=== PATIENT | female | born 1935 | race Caucasian/White ===

== ENCOUNTER 2021-12-09 13:22 | Inpatient (IN) ==
[2021-12-09 14:12] LABS: Basophils % 0.4 %; Eosinophils # 0.2 K/mcL (0.0-0.6); Eosinophils % 1.7 %; Hemoglobin 9.2 g/dL (11.5-15.4); Immature Granulocytes % 0.3 % (0-4); Lymphocytes # 1.4 K/mcL (0.6-4.6); Lymphocytes % 14.9 %; Mean Corpuscular HGB Conc 31.7 g/dL (31.6-35.5); Mean Corpuscular Hemoglobin 27.6 pg (28.0-33.3); Mean Corpuscular Volume 87.1 fL (83.0-100.0); Monocytes # 0.6 K/mcL (0.0-1.3); Monocytes % 6.5 %; Neutrophils # 7.1 K/mcL (1.6-8.9); Platelet Count 181 K/mcL (140-400); Red Blood Count 3.33 M/mcL (3.82-4.97); Red Cell Distribution Width 12.6 % (11.5-14.5); Segmented Neutrophils % 76.2 %; White Blood Count 9.4 K/mcL (4.3-11.1)
[2021-12-09 14:53] LABS: BUN/Creatinine Ratio 30 (6-26); Blood Urea Nitrogen 60 mg/dL (8-23); Calcium 8.8 mg/dL (8.6-10.3); Carbon Dioxide 21 mEq/L (23-29); Chloride 106 mEq/L (98-107); Glucose 208 mg/dL (70-105); Osmolality,Calculated 305 (280-300); Potassium 5.1 mEq/L (3.5-5.1); Sodium 136 mEq/L (136-145); Troponin I < 0.03 ng/mL (< 0.04); eGFR For African Americans 29 (> 60); eGFR For Non-African Americans 24 (> 60)
[2021-12-09 17:05] LABS: Alanine Aminotransferase 15 Units/L (7-52); Albumin 4.2 g/dL (3.5-5.7); Albumin/Globulin Ratio 1.7 (1.1-2.2); Alkaline Phosphatase 66 Units/L (34-104); Aspartate Amino Transferase 15 Units/L (13-39); Bilirubin,Direct 0.1 mg/dL (0.0-0.2); Bilirubin,Indirect 0.3 mg/dL (0.0-1.0); Bilirubin,Total 0.4 mg/dL (0.3-1.0); Globulin 2.5 g/dL (2.4-3.5); Total Protein 6.7 g/dL (6.4-8.9)
[2021-12-09 17:43] LABS: VBG HCO3 22 mEq/L (21-27); VBG PCO2 48 mmHg (41-51); VBG PH 7.28 pH Units (7.32-7.42); VBG PO2 50 mmHg (25-50)
[2021-12-09] MEDS ORDERED: Ipratropium/Albuterol Neb 3 ML IH ONE (17:46)
[2021-12-09] MEDS ORDERED: 0.9 % Sodium Chloride 500 ML IV ONE (17:49)
[2021-12-09 18:25] LABS: Bacteria,Urine Few per hpf (None-Few); Bilirubin,Urine Negative (Negative); Blood,Urine Negative (Negative); Clarity,Urine Clear (Clear); Color,Urine Colorless (Yellow); Glucose,Urine (UA) Normal (Normal); Ketones,Urine Negative (Negative); Leukocyte Esterase,Urine Moderate (Negative); Mucus,Urine Few per lpf (None-Few); Nitrite,Urine Negative (Negative); PH,Urine 5.5 pH Units (5.0-8.0); Protein,Urine Negative (Neg-Trace); RBC,Urine 0-3 per hpf (0-3); Specific Gravity,Urine 1.009 (1.010-1.025); Squamous Epithelial Cell,Urine Few per hpf (None-Few); Urobilinogen,Urine Normal (Normal)
[2021-12-09 20:31] LABS: Adenovirus Not Detected (Not Detect); Bordetella Pertussis Not Detected (Not Detect); Chlamydophila pneumoniae Not Detected (Not Detect); Coronavirus 229E Not Detected (Not Detect); Coronavirus HKU1 Not Detected (Not Detect); Coronavirus NL63 Not Detected (Not Detect); Coronavirus OC43 Not Detected (Not Detect); Human Metapneumovirus Not Detected (Not Detect); Human Rhinovirus/Enterovirus Not Detected (Not Detect); Influenza A Subtype 2009 H1 Not Detected (Not Detect); Influenza B Not Detected (Not Detect); Parainfluenza Virus 1 Not Detected (Not Detect); Parainfluenza Virus 2 Not Detected (Not Detect); Parainfluenza Virus 3 Not Detected (Not Detect); Parainfluenza Virus 4 Not Detected (Not Detect); Respiratory Syncytial Virus Not Detected (Not Detect); SARS-CoV-2 Not Detected (Not Detect)
[2021-12-09 20:32] LABS: Mycoplasma pneumoniae Not Detected (Not Detect)
[2021-12-09 20:41] LABS: VBG HCO3 21 mEq/L (21-27); VBG PCO2 47 mmHg (41-51); VBG PH 7.25 pH Units (7.32-7.42); VBG PO2 44 mmHg (25-50)
[2021-12-09] MEDS ORDERED: Melatonin 3 MG TABLET PO PRN (22:09)
[2021-12-09] MEDS ORDERED: Naloxone 0.4 MG/ML INJ IVP PRN (22:09)
[2021-12-09] MEDS ORDERED: Ondansetron ODT 4 MG TAB.RAPDIS SL PRN (22:09)
[2021-12-09] MEDS ORDERED: Acetaminophen 325 MG TABLET PO PRN (22:09)
[2021-12-09] MEDS ORDERED: Perflutren Lipid Microsphere 1.3 ML in 0.9 % Sodium Chloride 8.7 ML IVP PRN (22:12)
[2021-12-09] MEDS ORDERED: Dextrose Gel 15 GM/37.5 ML TUBE PO PRN ×2 (22:57)
[2021-12-09] MEDS ORDERED: D5% in Water 1,000 ML IVC PRN (22:57)
[2021-12-09] MEDS ORDERED: *HR* Dextrose 50 % in Water (Syg) 50 ML SYRINGE IVP PRN (22:57)
[2021-12-09] MEDS ORDERED: Ipratropium/Albuterol Neb 3 ML IH PRN (23:11)
[2021-12-09] MEDS ORDERED: Nitroglycerin 0.4 MG TAB.SUBL SL PRN (23:16)
[2021-12-10] MEDS: Insulin LISPRO 300 UNITS/3 ML VIAL SUBQ SCH ×4 (00:07→18:44)
[2021-12-10 06:06] LABS: Hematocrit 25.8 % (35.3-44.9); Hemoglobin 8.2 g/dL (11.5-15.4); Mean Corpuscular HGB Conc 31.8 g/dL (31.6-35.5); Mean Corpuscular Hemoglobin 27.3 pg (28.0-33.3); Mean Platelet Volume 10.6 fL (9.4-12.4); Platelet Count 135 K/mcL (140-400); Red Cell Distribution Width 12.5 % (11.5-14.5); White Blood Count 6.8 K/mcL (4.3-11.1)
[2021-12-10 06:25] LABS: Calcium 8.6 mg/dL (8.6-10.3); Chol/HDL Ratio 4.4 (0-4.9); Magnesium 2.1 mg/dL (1.6-2.6); Phosphorous 4.2 mg/dL (2.7-4.5); Potassium 5.1 mEq/L (3.5-5.1)
[2021-12-10 06:31] LABS: Thyroid Stimulating Hormone 3.124 mcIU/mL (0.340-5.600)
[2021-12-10 11:02] LABS: Estimated Average Glucose 154 mg/dl
[2021-12-10] MEDS ORDERED: Furosemide 20 MG/2 ML VIAL IVP ONE (12:17)
[2021-12-10] MEDS: Albumin 25% 25gram/100mL 25 GM/100 ML IV.SOLN IVPB SCH ×3 (13:34→23:41)
[2021-12-10] MEDS: Isosorbide MONOnitrate (24 HR) 60 MG TAB.ER.24H PO SCH (13:34)
[2021-12-10] MEDS: *HR* Heparin 5,000 UNIT/ML VIAL SQ SCH (18:37)
[2021-12-10] MEDS ORDERED: Sucralfate 1 GM TABLET PO SCH (21:00)
[2021-12-10] MEDS ORDERED: Insulin DETEMIR 100 UNIT/ML X5UNITS SUBQ SCH (21:00)
[2021-12-10] MEDS ORDERED: Mirtazapine 15 MG TABLET PO SCH (21:00)
[2021-12-11 00:39] LABS: Basophils % 0.4 %; Eosinophils # 0.1 K/mcL (0.0-0.6); Eosinophils % 1.9 %; Hematocrit 23.1 % (35.3-44.9); Hemoglobin 7.3 g/dL (11.5-15.4); Immature Granulocytes % 0.5 % (0-4); Lymphocytes % 18.2 %; Mean Corpuscular HGB Conc 31.6 g/dL (31.6-35.5); Mean Corpuscular Hemoglobin 27.3 pg (28.0-33.3); Mean Corpuscular Volume 86.5 fL (83.0-100.0); Mean Platelet Volume 10.6 fL (9.4-12.4); Monocytes # 0.5 K/mcL (0.0-1.3); Monocytes % 8.1 %; Neutrophils # 4.1 K/mcL (1.6-8.9); Platelet Count 133 K/mcL (140-400); Red Blood Count 2.67 M/mcL (3.82-4.97); Red Cell Distribution Width 12.5 % (11.5-14.5); Segmented Neutrophils % 70.9 %; White Blood Count 5.7 K/mcL (4.3-11.1)
[2021-12-11 01:02] LABS: Calcium 8.9 mg/dL (8.6-10.3); Phosphorous 3.3 mg/dL (2.7-4.5); Potassium 4.2 mEq/L (3.5-5.1)
[2021-12-11 02:31] VITALS: O2SAT 97
[2021-12-11 04:06] LABS: Estimated Average Glucose 154 mg/dl
[2021-12-11] MEDS: Insulin LISPRO 300 UNITS/3 ML VIAL SUBQ SCH ×3 (06:44→11:47)
[2021-12-11] MEDS: *HR* Heparin 5,000 UNIT/ML VIAL SQ SCH (06:44)
[2021-12-11] MEDS: Isosorbide MONOnitrate (24 HR) 60 MG TAB.ER.24H PO SCH (08:19)
[2021-12-11] MEDS ORDERED: lisinopriL 20 MG TABLET PO SCH (09:00)
[2021-12-11] MEDS ORDERED: Metoprolol XL (24 HR) Succ 50 MG TAB.ER.24H PO SCH (09:00)
[2021-12-11] MEDS ORDERED: ARIPiprazole 5 MG TABLET PO SCH (09:00)
[2021-12-11] MEDS ORDERED: Cyanocobalamin (B-12) 1,000 MCG TABLET PO SCH (09:00)
[2021-12-11 09:05] LABS: Hematocrit 25.5 % (35.3-44.9); Hemoglobin 8.2 g/dL (11.5-15.4)
[2021-12-11 09:34] LABS: % Iron Saturation 16 % (15-50); Iron 38 mcg/dL (50-170); Transferrin 168 mg/dL (203-362)
[2021-12-11 09:52] LABS: Ferritin 257 ng/mL (10-120)
[2021-12-11 10:52] VITALS: BP 118/59; PULSE 59; TEMP 98.1
[2021-12-11 10:58] LABS: Folate > 22.3 ng/mL (3.0-16.0); Vitamin B12 978 pg/mL (250-1100)
== END 2021-12-11 14:24 | disposition home health service (06) | DRG 291 ==
LOC: EMEROOARM 13:22 → 3BNU 13:22 → SUATTDRO 22:15 → 3BNU 23:00
PROVIDERS: ADMIT Student in an Organized Health Care Education/Training Program; ATTEND Internal Medicine

== ENCOUNTER 2022-01-23 16:32 | Inpatient (IN) ==
[2022-01-23] MEDS ORDERED: Iopamidol - 370 500 ML MLS IVP ONE (20:16)
[2022-01-23 21:04] LABS: Basophils % 0.4 %; Eosinophils # 0.1 K/mcL (0.0-0.6); Eosinophils % 1.6 %; Hemoglobin 9.2 g/dL (11.5-15.4); Immature Granulocytes % 0.5 % (0-4); Lymphocytes # 1.6 K/mcL (0.6-4.6); Lymphocytes % 22.1 %; Mean Corpuscular HGB Conc 31.7 g/dL (31.6-35.5); Mean Corpuscular Hemoglobin 27.3 pg (28.0-33.3); Mean Corpuscular Volume 86.1 fL (83.0-100.0); Mean Platelet Volume 10.8 fL (9.4-12.4); Monocytes # 0.6 K/mcL (0.0-1.3); Monocytes % 7.7 %; Platelet Count 192 K/mcL (140-400); Red Blood Count 3.37 M/mcL (3.82-4.97); Red Cell Distribution Width 12.6 % (11.5-14.5); Segmented Neutrophils % 67.7 %; White Blood Count 7.4 K/mcL (4.3-11.1)
[2022-01-23 21:13] LABS: BUN/Creatinine Ratio 32 (6-26); Blood Urea Nitrogen 58 mg/dL (8-23); Calcium 8.8 mg/dL (8.6-10.3); Carbon Dioxide 23 mEq/L (23-29); Chloride 105 mEq/L (98-107); Glucose 207 mg/dL (70-105); Osmolality,Calculated 306 (280-300); Sodium 137 mEq/L (136-145); Troponin I < 0.03 ng/mL (< 0.04)
[2022-01-23] MEDS ORDERED: Aspirin 81 MG TAB.CHEW PO ONE (23:10)
[2022-01-23] MEDS ORDERED: *HR* HYDROcodone/Acet 5/325 mg TABLET PO PRN (23:45)
[2022-01-23] MEDS ORDERED: Acetaminophen 325 MG TABLET PO PRN (23:45)
[2022-01-23] MEDS ORDERED: Naloxone 0.4 MG/ML INJ IVP PRN (23:45)
[2022-01-24] MEDS ORDERED: *HR* Dextrose 50 % in Water (Syg) 50 ML SYRINGE IVP PRN (04:55)
[2022-01-24] MEDS ORDERED: Dextrose Gel 15 GM/37.5 ML TUBE PO PRN ×2 (04:55)
[2022-01-24] MEDS ORDERED: D5% in Water 1,000 ML IVC PRN (04:55)
[2022-01-24] MEDS ORDERED: *HR* Enoxaparin 40 MG/0.4 ML SYRINGE SQ SCH (06:00)
[2022-01-24 06:38] LABS: Hematocrit 31.1 % (35.3-44.9); Hemoglobin 9.7 g/dL (11.5-15.4); Mean Corpuscular HGB Conc 31.2 g/dL (31.6-35.5); Mean Corpuscular Hemoglobin 27.2 pg (28.0-33.3); Mean Corpuscular Volume 87.4 fL (83.0-100.0); Mean Platelet Volume 10.3 fL (9.4-12.4); Platelet Count 181 K/mcL (140-400); Red Blood Count 3.56 M/mcL (3.82-4.97); Red Cell Distribution Width 12.7 % (11.5-14.5); White Blood Count 6.1 K/mcL (4.3-11.1)
[2022-01-24 06:44] LABS: INR 1.1; Prothrombin Time 11.8 Seconds (9.4-12.1)
[2022-01-24 06:47] LABS: Activated Partial Thrombo Time 29.3 Seconds (26.0-36.0)
[2022-01-24 07:01] LABS: Albumin 4.4 g/dL (3.5-5.7); Albumin/Globulin Ratio 1.8 (1.1-2.2); Bilirubin,Total 0.5 mg/dL (0.3-1.0); Calcium 8.8 mg/dL (8.6-10.3); Chol/HDL Ratio 4.7 (0-4.9); Globulin 2.5 g/dL (2.4-3.5); Magnesium 2.1 mg/dL (1.6-2.6); Phosphorous 4.2 mg/dL (2.7-4.5); Potassium 4.3 mEq/L (3.5-5.1); Total Protein 6.9 g/dL (6.4-8.9)
[2022-01-24 07:59] LABS: Estimated Average Glucose 157 mg/dl; Hemoglobin A1C 7.1 %
[2022-01-24] MEDS: Insulin LISPRO 300 UNITS/3 ML VIAL SUBQ SCH ×4 (08:49→22:20)
[2022-01-24] MEDS: Metoprolol XL (24 HR) Succ 25 MG TAB.ER.24H PO SCH (12:39)
[2022-01-24] MEDS: lisinopriL 20 MG TABLET PO SCH (12:39)
[2022-01-24] MEDS: Melatonin 3 MG TABLET PO PRN (22:20)
[2022-01-25 01:55] LABS: Basophils % 0.4 %; Eosinophils # 0.2 K/mcL (0.0-0.6); Eosinophils % 2.9 %; Hematocrit 29.5 % (35.3-44.9); Hemoglobin 9.2 g/dL (11.5-15.4); Immature Granulocytes % 0.6 % (0-4); Lymphocytes # 1.2 K/mcL (0.6-4.6); Lymphocytes % 22.8 %; Mean Corpuscular HGB Conc 31.2 g/dL (31.6-35.5); Mean Corpuscular Hemoglobin 27.9 pg (28.0-33.3); Mean Corpuscular Volume 89.4 fL (83.0-100.0); Mean Platelet Volume 10.8 fL (9.4-12.4); Monocytes # 0.4 K/mcL (0.0-1.3); Monocytes % 8.1 %; Neutrophils # 3.4 K/mcL (1.6-8.9); Platelet Count 146 K/mcL (140-400); Red Cell Distribution Width 12.7 % (11.5-14.5); Segmented Neutrophils % 65.2 %; White Blood Count 5.2 K/mcL (4.3-11.1)
[2022-01-25 03:06] LABS: Calcium 8.5 mg/dL (8.6-10.3); Potassium 4.5 mEq/L (3.5-5.1)
[2022-01-25] MEDS: *HR* Enoxaparin 30 MG/0.3 ML SYRINGE SQ SCH (08:34)
[2022-01-25] MEDS: lisinopriL 20 MG TABLET PO SCH (08:35)
[2022-01-25] MEDS: Insulin LISPRO 300 UNITS/3 ML VIAL SUBQ SCH ×4 (08:35→21:16)
[2022-01-25] MEDS: Metoprolol XL (24 HR) Succ 25 MG TAB.ER.24H PO SCH (08:35)
[2022-01-25] MEDS: Isosorbide MONOnitrate (24 HR) 60 MG TAB.ER.24H PO SCH (12:09)
[2022-01-25] MEDS: Mirtazapine 15 MG TABLET PO SCH (20:20)
[2022-01-26] MEDS: *HR* Enoxaparin 30 MG/0.3 ML SYRINGE SQ SCH (04:18)
[2022-01-26 05:58] LABS: Calcium 8.8 mg/dL (8.6-10.3); Potassium 4.4 mEq/L (3.5-5.1)
[2022-01-26] MEDS: Cyanocobalamin (B-12) 1,000 MCG TABLET PO SCH (09:56)
[2022-01-26] MEDS: Isosorbide MONOnitrate (24 HR) 60 MG TAB.ER.24H PO SCH (09:56)
[2022-01-26] MEDS: Furosemide 40 MG TABLET PO SCH (09:56)
[2022-01-26] MEDS: lisinopriL 20 MG TABLET PO SCH (09:56)
[2022-01-26] MEDS: ARIPiprazole 5 MG TABLET PO SCH (09:56)
[2022-01-26] MEDS: Metoprolol XL (24 HR) Succ 25 MG TAB.ER.24H PO SCH (09:57)
[2022-01-26] MEDS: Ringers Solution, Lactated 1,000 ML IVC SCH ×2 (10:04→22:34)
[2022-01-26] MEDS: Insulin LISPRO 300 UNITS/3 ML VIAL SUBQ SCH ×4 (10:05→20:40)
[2022-01-26] MEDS: Melatonin 3 MG TABLET PO PRN (20:36)
[2022-01-26] MEDS: Mirtazapine 15 MG TABLET PO SCH (20:36)
[2022-01-27 03:07] LABS: Basophils % 0.4 %; Eosinophils # 0.1 K/mcL (0.0-0.6); Eosinophils % 2.9 %; Hemoglobin 8.1 g/dL (11.5-15.4); Immature Granulocytes % 0.4 % (0-4); Lymphocytes # 1.2 K/mcL (0.6-4.6); Lymphocytes % 24.5 %; Mean Corpuscular HGB Conc 31.2 g/dL (31.6-35.5); Mean Corpuscular Hemoglobin 27.3 pg (28.0-33.3); Mean Corpuscular Volume 87.5 fL (83.0-100.0); Mean Platelet Volume 10.6 fL (9.4-12.4); Monocytes # 0.4 K/mcL (0.0-1.3); Monocytes % 7.5 %; Neutrophils # 3.1 K/mcL (1.6-8.9); Platelet Count 150 K/mcL (140-400); Red Blood Count 2.97 M/mcL (3.82-4.97); Red Cell Distribution Width 12.6 % (11.5-14.5); Segmented Neutrophils % 64.3 %; White Blood Count 4.8 K/mcL (4.3-11.1)
[2022-01-27 03:25] LABS: Calcium 8.5 mg/dL (8.6-10.3); Potassium 4.2 mEq/L (3.5-5.1)
[2022-01-27] MEDS: *HR* Enoxaparin 30 MG/0.3 ML SYRINGE SQ SCH (05:34)
[2022-01-27] MEDS: lisinopriL 20 MG TABLET PO SCH (09:36)
[2022-01-27] MEDS: Furosemide 40 MG TABLET PO SCH (09:36)
[2022-01-27] MEDS: Cyanocobalamin (B-12) 1,000 MCG TABLET PO SCH (09:36)
[2022-01-27] MEDS: ARIPiprazole 5 MG TABLET PO SCH (09:36)
[2022-01-27] MEDS: Isosorbide MONOnitrate (24 HR) 60 MG TAB.ER.24H PO SCH (09:36)
[2022-01-27] MEDS: Metoprolol XL (24 HR) Succ 25 MG TAB.ER.24H PO SCH (09:36)
[2022-01-27] MEDS: Insulin LISPRO 300 UNITS/3 ML VIAL SUBQ SCH ×4 (09:38→20:45)
[2022-01-27] MEDS: Ringers Solution, Lactated 1,000 ML IVC SCH (12:48)
[2022-01-27] MEDS: Mirtazapine 15 MG TABLET PO SCH (20:45)
[2022-01-28] MEDS: Ringers Solution, Lactated 1,000 ML IVC SCH (04:16)
[2022-01-28] MEDS: *HR* Enoxaparin 30 MG/0.3 ML SYRINGE SQ SCH (06:36)
[2022-01-28] MEDS: Insulin LISPRO 300 UNITS/3 ML VIAL SUBQ SCH ×2 (10:15→12:32)
[2022-01-28] MEDS: Furosemide 40 MG TABLET PO SCH (10:17)
[2022-01-28] MEDS: Cyanocobalamin (B-12) 1,000 MCG TABLET PO SCH (10:17)
[2022-01-28] MEDS: ARIPiprazole 5 MG TABLET PO SCH (10:17)
[2022-01-28] MEDS: Isosorbide MONOnitrate (24 HR) 60 MG TAB.ER.24H PO SCH (10:17)
[2022-01-28] MEDS: lisinopriL 20 MG TABLET PO SCH (10:17)
[2022-01-28] MEDS: Metoprolol XL (24 HR) Succ 25 MG TAB.ER.24H PO SCH (10:17)
[2022-01-28 16:26] VITALS: BP 155/64; PULSE 65; TEMP 97.4; O2SAT 100
== END 2022-01-28 17:40 | DRG 55 ==
LOC: SUATTDRO → 3NENU 16:32 → EMEROOARM 16:32 → SUATTDRO 01-24 02:57 → 3NENU 01-24 04:10
PROVIDERS: ADMIT Internal Medicine; ATTEND Family Medicine